=== PATIENT | female | born 1935 | race Caucasian/White ===

== ENCOUNTER → 2019-08-30 10:08 | Outpatient (BNVA) | payer MEDICARE, SELFPAY | PROVIDERS: Family Provider Nurse Practitioner; PCP Nurse Practitioner; Visit Provider Nurse Practitioner Family | DX: R05 Cough (principal) | CPT/HCPCS: 71046 ==

== ENCOUNTER → 2020-01-16 10:31 | Outpatient (BNVA) | payer MEDICARE, SELFPAY | PROVIDERS: Family Provider Nurse Practitioner; PCP Nurse Practitioner; Visit Provider Nurse Practitioner | DX: E03.9 Hypothyroidism, unspecified (principal); I10 Essential (primary) hypertension; K59.01 Slow transit constipation; R63.4 Abnormal weight loss; E78.2 Mixed hyperlipidemia | CPT/HCPCS: 80053; 80061; 84443; 85025 ==

== ENCOUNTER 2020-01-24 09:03 | Outpatient (CLI) | payer MEDICARE, SELFPAY ==
--- NOTE | 2020-01-24 10:30 | CT_ITS ---
WS: [id number] CT CHEST, ABDOMEN AND PELVIS WITHOUT CONTRAST HISTORY: weight loss, history of appendectomy, thyroidectomy and hysterectomy. TECHNIQUE: Contiguous 5 mm axial imaging performed through the chest, abdomen and pelvis without IV c ontrast, oral contrast has been provided. Coronal and sagittal reformats chest. Coronal and sagittal reformats through the abdomen and pelvis. All CT scans at [facility] use at least one of these dose optimization techniques: automated exposure control; mA and/or kV adjustment per patient s ize (includes targeted exams where dose is matched to clinical indication); or iterative reconstructi on. CONTRAST: None DLP: 1979.91 mGycm COMPARISON: 03/20/2009. Chest CT: Chronic interstitial changes within both lungs. There is an area of linear scar at the RIGH T apex. No pneumonia. No pleural effusion. Mild atherosclerosis of aorta. Enlarged pulmonary artery. Benign calcified lymph nodes at the RIGHT hilum and paratracheal region. There is mild thickening and fullness at the RIGHT hilum. Small nodular density measuring 12 mm at the RIGHT hilum of uncertain e tiology. Small hiatal hernia. Abdomen CT: There are numerous low-attenuation masses in the LEFT lobe of the liver with the largest measuring 5.4 cm. Stable since 2008. Normal spleen with granulomata. Gallbladder is negative. No adre nal mass. Atrophic pancreas. Atherosclerosis of aorta. No renal obstruction. No adenopathy or fluid o r free air. Pelvic CT: No free fluid or adenopathy in the pelvis. There is extensive moderate constipation. No ob struction. Prior appendectomy. Marked increase in thoracic kyphosis. No osteoblastic or osteolytic disease. CT/CT chest abd pel wo con IMPRESSION: 1. Study is limited by noncontrast evaluation. 2. Fullness at the RIGHT hilum. Small nodule adjacent to the inferior hilum me asuring 12 mm is not excluded. Fullness may be associated with a neoplasm or br onchitis. May be a benign lymph node. 3. Chronic emphysema and pulmonary hypertension. 4. Prior appendectomy and hysterectomy. 5. Diffuse constipation. 6. No ascites or adenopathy. 7. Long-term stability of the LEFT hepatic cysts.
== END 2020-01-24 09:04 | disposition home or self-care (01) ==
LOC: RADWPI 09:10
PROVIDERS: Family Provider Nurse Practitioner; PCP Nurse Practitioner; Visit Provider Nurse Practitioner
DX: R63.4 Abnormal weight loss (principal); J43.9 Emphysema, unspecified; I27.20 Pulmonary hypertension, unspecified; Q42.8 Congenital absence, atresia and stenosis of other parts of large intestine; Z90.710 Acquired absence of both cervix and uterus; K59.00 Constipation, unspecified; K76.89 Other specified diseases of liver
CPT/HCPCS: 71250; 74176

== ENCOUNTER → 2020-04-17 08:46 | Outpatient (BNVA) | payer MEDICARE, SELFPAY | PROVIDERS: Family Provider Nurse Practitioner; PCP Nurse Practitioner; Visit Provider Urology | DX: N30.20 Other chronic cystitis without hematuria (principal) | CPT/HCPCS: 80053; 81001; 87077; 87086; 87186 ==

== ENCOUNTER → 2020-05-30 08:06 | Outpatient (BNVA) | payer MEDICARE, SELFPAY | PROVIDERS: Family Provider Nurse Practitioner; PCP Nurse Practitioner; Visit Provider Urology | DX: N30.20 Other chronic cystitis without hematuria (principal); N39.41 Urge incontinence | CPT/HCPCS: 81001 ==

== ENCOUNTER 2020-06-13 11:11 | Outpatient (CLI) | payer MEDICARE, SELFPAY ==
--- NOTE | 2020-06-13 11:30 | CT_ITS ---
WS: [id number] CT CHEST TECHNIQUE: Noncontrast CT of the chest with coronal and sagittal reformatted images. CLINICAL INFORMATION: Hilar lymphadenopathy COMPARISON: CT chest January 24, 2020 DLP: 391.[address] scans at [facility] use at least one of these dose optimization techniques: automat ed exposure control; mA and/or kV adjustment per patient size (includes targeted exams where dose is matched to clinical indication); or iterative reconstruction. FINDINGS: Moderate chronic emphysematous changes. No acute pulmonary infiltrates. Calcified granulomatous disea se. Calcified right hilar lymph nodes. Subsegmental atelectasis right lower lobe. No significant bonner ges in the mild fullness and thickening involving the right hilum with adjacent 12 mm nodular density . No new pulmonary opacities. Small esophageal hiatal hernia. Stable low-attenuation lesions in the liver likely hepatic cysts. Adrenal glands are normal. Splenic artery calcification. Splenic granulomas. CT/CT chest wo con [id number] IMPRESSION: 1. No significant change in the right hilar thickening and fullness with adjac ent 12 mm nodule or lymph node. 2. Calcified granulomas with calcified right hilar lymph nodes. 3. Chronic emphysematous change with subsegmental atelectasis in the lung base s. 4. Cholelithiasis. 5. Hepatic cysts the largest left hepatic cyst measuring 5.4 cm.
== END 2020-06-13 11:12 | disposition home or self-care (01) ==
LOC: CT 11:12
PROVIDERS: PCP Nurse Practitioner; Visit Provider Internal Medicine Critical Care Medicine
DX: R59.0 Localized enlarged lymph nodes (principal); L92.9 Granulomatous disorder of the skin and subcutaneous tissue, unspecified; J98.11 Atelectasis; K80.20 Calculus of gallbladder without cholecystitis without obstruction; K76.89 Other specified diseases of liver
CPT/HCPCS: 71250

== ENCOUNTER → 2020-07-15 15:22 | Outpatient (BNVA) | payer MEDICARE, SELFPAY | PROVIDERS: PCP Nurse Practitioner; Visit Provider Nurse Practitioner | DX: I10 Essential (primary) hypertension (principal); E03.9 Hypothyroidism, unspecified; K59.01 Slow transit constipation; E78.2 Mixed hyperlipidemia | CPT/HCPCS: 80053; 80061; 84443; 85025 ==

== ENCOUNTER → 2020-09-23 10:09 | Outpatient (BNVA) | payer MEDICARE, SELFPAY | PROVIDERS: PCP Nurse Practitioner; Visit Provider Urology | DX: N30.20 Other chronic cystitis without hematuria (principal); N39.41 Urge incontinence | CPT/HCPCS: 81003 ==

== ENCOUNTER → 2020-11-15 15:14 | Outpatient (BNVA) | payer MEDICARE, SELFPAY | PROVIDERS: PCP Nurse Practitioner; Visit Provider Nurse Practitioner Family | DX: N30.20 Other chronic cystitis without hematuria (principal); N39.41 Urge incontinence; R53.1 Weakness; R11.0 Nausea; M54.2 Cervicalgia; R06.02 Shortness of breath | CPT/HCPCS: 80053; 81003; 84443; 85025 ==

== ENCOUNTER → 2020-11-27 10:04 | Outpatient (BNVA) | payer MEDICARE, SELFPAY | PROVIDERS: PCP Nurse Practitioner; Visit Provider Nurse Practitioner | DX: N39.41 Urge incontinence (principal); E55.9 Vitamin D deficiency, unspecified; I10 Essential (primary) hypertension; K59.01 Slow transit constipation; E03.9 Hypothyroidism, unspecified; E78.2 Mixed hyperlipidemia | CPT/HCPCS: 81003; 82306; 82607 ==

== ENCOUNTER 2020-12-11 09:46 | Outpatient (CLI) | payer MEDICARE, SELFPAY ==
--- NOTE | 2020-12-11 10:15 | CT_ITS ---
WS: [id number] CT CHEST WITHOUT INTRAVENOUS CONTRAST HISTORY: Hilar lesion TECHNIQUE: Contiguous 5 mm axial imaging performed on the thorax. Coronal and sagittal reformats are submitted. All CT scans at [facility] use at least one of these dose optimization techniq ues: automated exposure control; mA and/or kV adjustment per patient size (includes targeted exams wh ere dose is matched to clinical indication); or iterative reconstruction. CONTRAST: None DLP: 698.51 mGycm COMPARISON: 06/13/2020 and 01/24/2020 This study is compromised by breathing motion artifact. Lungs and central airway: Mild groundglass attenuation bilaterally. There are benign granuloma. Scatt ered areas of subsegmental atelectasis. No mass or nodule. Pleura: Normal. No pleural effusion. Heart and pericardium: Mild enlargement of the heart. Mediastinum and yoel: Again noted is a soft tissue thickening and lobulation associated with the RIGH T hilum. Soft tissue measures 2.0 x 1.0 cm along the posterior RIGHT lower lobe proximal bronchi. Not significantly changed since 01/24/2020. There are additional small hilar lymph nodes. Vessels: Mild ectasia and atherosclerosis aorta. Moderate enlargement of the pulmonary artery to 3.3 cm. Chest wall and lower neck: Surgical clips in the RIGHT thyroid bed. Upper abdomen: Numerous hepatic cysts. The largest extends posteriorly from the LEFT lobe and is lobu lated measuring 3.9 x 4.9 cm. Negative gallbladder. Splenic granulomata. No adrenal mass. 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 Osseous structures: Moderate increase in thoracic kyphosis. No compression fractures. No bone destruc tion. CT/CT chest wo con [id number] IMPRESSION: 1. Stable soft tissue thickening and lobulation involving the RIGHT hilum. No change since 01/24/2020. Consider serial evaluation or bronchoscopy. Low-grade ne oplasm, chronic bronchial thickening or lymph node within the differential. 2. Bilateral areas of mild atelectasis and emphysema. 3. Mild pulmonary hypertension. 4. Hepatic cysts are stable.
== END 2020-12-11 09:47 | disposition home or self-care (01) ==
PROVIDERS: PCP Nurse Practitioner; Visit Provider Internal Medicine Critical Care Medicine
DX: R59.0 Localized enlarged lymph nodes (principal); K76.89 Other specified diseases of liver; I27.20 Pulmonary hypertension, unspecified; J98.11 Atelectasis; J43.9 Emphysema, unspecified
CPT/HCPCS: 71250

== ENCOUNTER → 2021-07-23 10:40 | Outpatient (BNVA) | payer MEDICARE, SELFPAY | PROVIDERS: PCP Nurse Practitioner; Visit Provider Nurse Practitioner | DX: E03.9 Hypothyroidism, unspecified (principal); I10 Essential (primary) hypertension; E55.9 Vitamin D deficiency, unspecified | CPT/HCPCS: 80053; 80061; 82306; 84443; 85025 ==

== ENCOUNTER → 2021-12-18 09:36 | Outpatient (BNVA) | payer MEDICARE, SELFPAY | PROVIDERS: PCP Nurse Practitioner; Visit Provider Nurse Practitioner | DX: I10 Essential (primary) hypertension (principal); E03.9 Hypothyroidism, unspecified; E55.9 Vitamin D deficiency, unspecified; N39.0 Urinary tract infection, site not specified; R26.81 Unsteadiness on feet | CPT/HCPCS: 80053; 80061; 81000; 84443; 85025; 87077; 87086; 87184 ==

== ENCOUNTER → 2022-05-28 11:48 | Outpatient (BNVA) | payer MEDICARE, SELFPAY | PROVIDERS: PCP Nurse Practitioner; Visit Provider Nurse Practitioner | DX: K59.01 Slow transit constipation (principal); E78.2 Mixed hyperlipidemia; E03.9 Hypothyroidism, unspecified; Z23 Encounter for immunization; I10 Essential (primary) hypertension; E55.9 Vitamin D deficiency, unspecified | CPT/HCPCS: 80053; 80061; 82306; 82607; 84443 ==

== ENCOUNTER → 2022-10-21 13:42 | Outpatient (BNVA) | payer MEDICARE, SELFPAY | PROVIDERS: PCP Nurse Practitioner; Visit Provider Urology | DX: N30.20 Other chronic cystitis without hematuria (principal); N39.41 Urge incontinence | CPT/HCPCS: 51798; 81003; 87077; 87086; 87186; 99213 ==

== ENCOUNTER → 2022-11-18 11:30 | Outpatient (BNVA) | payer MEDICARE, SELFPAY | PROVIDERS: PCP Nurse Practitioner; Visit Provider Nurse Practitioner | DX: I10 Essential (primary) hypertension (principal); E55.9 Vitamin D deficiency, unspecified; K59.01 Slow transit constipation; E03.9 Hypothyroidism, unspecified; E78.2 Mixed hyperlipidemia | CPT/HCPCS: 80053; 80061; 82306; 84443; 85025 ==

== ENCOUNTER → 2023-05-12 11:37 | Outpatient (BNVA) | payer MEDICARE, SELFPAY | PROVIDERS: PCP Nurse Practitioner; Visit Provider Nurse Practitioner | DX: E03.9 Hypothyroidism, unspecified (principal); E55.9 Vitamin D deficiency, unspecified; I10 Essential (primary) hypertension; N30.20 Other chronic cystitis without hematuria; K59.01 Slow transit constipation; E78.2 Mixed hyperlipidemia | CPT/HCPCS: 80053; 81000; 82306; 82607; 83735; 84443; 85025 ==

== ENCOUNTER 2023-06-03 09:18 | Outpatient (CLI) | payer MEDICARE, SELFPAY ==
[2023-06-03] MEDS: iohexol 350 mg/mL 500 mL Btl (per mL) PO (09:23)
--- NOTE | 2023-06-03 10:30 | CTR_ITS ---
PROCEDURE INFORMATION: Exam: CT Chest Without Contrast; Diagnostic Exam date and time: 06/03/2023 9:53 AM Age: 87 years old Clinical indication: Other: Localized enlarged lymph nodes; Prior surgery; Surgery date: 6+ months; Surgery type: Appy, hyst; Patient HX: Lymphadenopathy, weight loss; Additional info: R59.0 - localized enlarged lymph nodes TECHNIQUE: Imaging protocol: Diagnostic computed tomography of the chest without contrast. Radiation optimization: All CT scans at this facility use at least one of these dose optimization techniques: automated exposure control; mA and/or kV adjustment per patient size (includes targeted exams where dose is matched to clinical indication); or iterative reconstruction. REPORTING DATA: Count of CT and Cardiac NM exams in prior 12 months: This patient has received 0 known CTs and 0 known cardiac nuclear medicine studies in the 12 months prior to the current study. COMPARISON: CT chest wo con [id number] 12/11/2020 10:03 AM RADIATION DOSE METRICS: Total DLP (mGy-cm): 551.18 FINDINGS: Lungs: Linear scarring or atelectasis is seen in the lower lobes bilaterally. Pleural spaces: No pleural effusion. No pneumothorax. Heart: No cardiomegaly. No significant pericardial effusion. Coronary arterial calcifications are visualized. Lymph nodes: Calcified mediastinal and right hilar lymph nodes. No lymphadenopathy. Vasculature: The thoracic aorta is normal caliber. No aneurysm or dissection is seen. Bones/joints: Spinal degenerative changes. Soft tissues: Unremarkable. Other findings: There is evidence of previous granulomatous reaction. PROCEDURE INFORMATION: Exam: CT Abdomen And Pelvis Without Contrast Exam date and time: 06/03/2023 9:53 AM Age: 87 years old Clinical indication: Other: Localized enlarged lymph nodes; Prior surgery; Surgery date: 6+ months; Surgery type: Appy, hyst; Patient HX: Lymphadenopathy, weight loss; Additional info: R59.0 - localized enlarged lymph nodes TECHNIQUE: Imaging protocol: Computed tomography of the abdomen and pelvis without contrast. Radiation optimization: All CT scans at this facility use at least one of these dose optimization techniques: automated exposure control; mA and/or kV adjustment per patient size (includes targeted exams where dose is matched to clinical indication); or iterative reconstruction. REPORTING DATA: Count of CT and Cardiac NM exams in prior 12 months: This patient has received 0 known CTs and 0 known cardiac nuclear medicine studies in the 12 months prior to the current study. COMPARISON: [place] [id number] 01/24/2020 10:26 AM RADIATION DOSE METRICS: Total DLP (mGy-cm): 551.18 FINDINGS: Liver: Hepatic cysts are unchanged compared to 12/11/2020. Gallbladder and bile ducts: The gallbladder is normal. Pancreas: The pancreas is normal. Spleen: Calcified granulomata are seen in the spleen. Adrenal glands: The adrenal glands are normal. Kidneys and ureters: Nonobstructing nephrolithiasis on the right. Stomach and bowel: The stomach is normal. Retained fecal material is noted in the colon. Diverticulosis coli is noted, with no inflammatory changes to indicate diverticulitis. Appendix: No evidence of appendicitis. Intraperitoneal space: There is no free intraperitoneal air visualized. There is no evidence of free intraperitoneal or pelvic fluid. Vasculature: There is no evidence of an abdominal aortic aneurysm. Lymph nodes: No abnormally enlarged lymph nodes identified in the abdomen or pelvis. Urinary bladder: Bladder wall appears thickened, likely due to nondistended state. Correlate with clinical information to exclude cystitis. Reproductive: Hysterectomy. Bones/joints: Mild spinal and hip degenerative changes. Soft tissues: Unremarkable. CT/[place] [id number] IMPRESSION: 1. No lymphadenopathy. 2. There is evidence of previous granulomatous reaction. 3. Linear scarring or atelectasis is seen in the lower lobes bilaterally. IMPRESSION: 1. Bladder wall appears thickened, likely due to nondistended state. Correlate with clinical information to exclude cystitis. 2. Nonobstructing nephrolithiasis on the right. 3. Diverticulosis coli.
== END 2023-06-03 09:19 | disposition home or self-care (01) ==
PROVIDERS: PCP Nurse Practitioner; Visit Provider Nurse Practitioner
DX: R59.0 Localized enlarged lymph nodes (principal); R63.4 Abnormal weight loss; R91.1 Solitary pulmonary nodule
CPT/HCPCS: 71250; 74176; Q9967

== ENCOUNTER → 2023-10-27 11:44 | Outpatient (BNVA) | payer MEDICARE, SELFPAY | PROVIDERS: PCP Nurse Practitioner; Visit Provider Nurse Practitioner | DX: E55.9 Vitamin D deficiency, unspecified (principal); I10 Essential (primary) hypertension; E78.2 Mixed hyperlipidemia; E03.9 Hypothyroidism, unspecified | CPT/HCPCS: 80053; 80061; 81000; 82306; 84439; 84443; 84481; 85025 ==

== ENCOUNTER → 2024-04-12 11:32 | Outpatient (BNVA) | payer MEDICARE, SELFPAY | PROVIDERS: PCP Nurse Practitioner; Visit Provider Nurse Practitioner | DX: I10 Essential (primary) hypertension (principal); E78.2 Mixed hyperlipidemia; N39.41 Urge incontinence | CPT/HCPCS: 80053; 80061; 81000; 82607; 84443; 85025; 87086 ==

== ENCOUNTER 2024-05-23 09:46 | Outpatient (CLI) | payer MEDICARE, SELFPAY ==
--- NOTE | 2024-05-23 10:00 | CT_ITS ---
WS: [id number] CT HEAD NONCONTRAST HISTORY: I10 - Essential (primary) hypertension TECHNIQUE: Contiguous axial imaging performed through the brain in 2.5 mm imaging. Bone and soft tiss ue windows. Sagittal and coronal reformats reviewed. All CT scans at [facility] use at least one of these dose optimization techniques: automated exposure control; mA and/or kV adjustment per pa tient size (includes targeted exams where dose is matched to clinical indication); or iterative recon struction. DLP: 989.33 mGy.cm COMPARISON: 01/06/2017 No acute intracranial hemorrhage, midline shift or mass effect. Moderate symmetric atrophy. Moderate small vessel ischemic disease in small bilateral lacunar infarct s. Moderate cerebellar atrophy. Ventricles: Ventricles and extra-axial spaces are mildly prominent on the basis of atrophy. Heavy calcification through the cavernous sinuses within the carotid arteries. There is a slightly bu lbous and ectatic appearance of the distal LEFT supraclinoid ICA and proximal MCA. Similar pattern on a prior MRA from 2005. No interval change. Paranasal sinuses: As visualized are clear. Mastoid air cells: Chronic appearing changes in the mastoid air cells. Calvarium and scalp: Skull is intact with no soft tissue edema or swelling. CT/CT head wo con* [id number] IMPRESSION: 1. No acute intracranial hemorrhage or edema. 2. 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 Mild progression of chronic disease since 2017. 3. Moderate cerebellar atrophy.
== END 2024-05-23 09:47 | disposition home or self-care (01) ==
LOC: RAD 09:46
PROVIDERS: PCP Nurse Practitioner; Visit Provider Nurse Practitioner
DX: I10 Essential (primary) hypertension (principal); G31.9 Degenerative disease of nervous system, unspecified; I65.23 Occlusion and stenosis of bilateral carotid arteries; R42 Dizziness and giddiness
CPT/HCPCS: 70450

== ENCOUNTER → 2024-05-25 09:49 | Outpatient (BNVA) | payer MEDICARE, SELFPAY | PROVIDERS: PCP Nurse Practitioner; Visit Provider Internal Medicine Cardiovascular Disease | DX: R42 Dizziness and giddiness (principal); I10 Essential (primary) hypertension; E03.9 Hypothyroidism, unspecified; I49.3 Ventricular premature depolarization; I49.1 Atrial premature depolarization | CPT/HCPCS: 93242 ==

== ENCOUNTER → 2024-08-31 11:47 | Outpatient (BNVA) | payer MEDICARE, SELFPAY | PROVIDERS: PCP Nurse Practitioner; Visit Provider Nurse Practitioner | DX: I10 Essential (primary) hypertension (principal); E03.9 Hypothyroidism, unspecified; N30.20 Other chronic cystitis without hematuria | CPT/HCPCS: 80053; 80061; 84443 ==

== ENCOUNTER → 2025-02-06 11:15 | Outpatient (BNVA) | payer MEDICARE, SELFPAY | PROVIDERS: PCP Nurse Practitioner; Visit Provider Nurse Practitioner | DX: E78.2 Mixed hyperlipidemia (principal); I10 Essential (primary) hypertension; E03.9 Hypothyroidism, unspecified; E55.9 Vitamin D deficiency, unspecified | CPT/HCPCS: 80053; 80061; 82306; 82607; 84439; 84443; 85025 ==

== ENCOUNTER → 2025-05-08 15:45 | Outpatient (BNVA) | payer MEDICARE, SELFPAY | PROVIDERS: PCP Nurse Practitioner; Visit Provider Nurse Practitioner | DX: N30.20 Other chronic cystitis without hematuria (principal); N39.41 Urge incontinence | CPT/HCPCS: 81000; 87086 ==

== ENCOUNTER → 2025-07-31 12:02 | Outpatient (BNVA) | payer MEDICARE, SELFPAY | PROVIDERS: PCP Nurse Practitioner; Visit Provider Nurse Practitioner | DX: E03.9 Hypothyroidism, unspecified (principal); E78.2 Mixed hyperlipidemia | CPT/HCPCS: 80053; 80061; 84439; 84443; 84481 ==